=== PATIENT | female | born 1960 ===

== ENCOUNTER 2018-02-09 11:06 | Outpatient (CLI) | payer BC ==
--- NOTE | 2018-02-09 12:36 | RAD ---
THORACIC SPINE RADIOGRAPH SERIES TWO VIEWS: Indication: Back pain. FINDINGS: There is mild degenerative change without compression fracture or subluxation. No significant malalig nment. IMPRESSION: Mild degenerative change of the thoracic spine. POS: [facility]
--- NOTE | 2018-02-09 13:37 | RAD ---
LUMBAR SPINE RADIOGRAPHIC SERIES 2-3 VIEW: Indication: Low back pain. FINDINGS: There is no evidence of compression fracture or subluxation. Mild endplate degenerative change is pre sent within the lumbar spine. Intervertebral disc spaces are relatively well preserved. IMPRESSION: Mild degenerative change of the lumbar spine. No acute process visualized. POS: [facility]
== END 2018-02-09 11:07 | disposition home or self-care (01) ==
LOC: SCSRAD 11:06
PROVIDERS: ATTEND Chiropractor
DX: M54.32 Sciatica, left side (principal); M41.25 Other idiopathic scoliosis, thoracolumbar region; M46.07 Spinal enthesopathy, lumbosacral region; M47.816 Spondylosis without myelopathy or radiculopathy, lumbar region; M47.814 Spondylosis without myelopathy or radiculopathy, thoracic region
CPT/HCPCS: 72072; 72100